=== PATIENT | male | born 1965 | race Caucasian/White ===

== ENCOUNTER 2025-02-11 07:32 | Outpatient (CLI) | payer OTHER | END 2025-02-11 07:33 | disposition home or self-care (01) | LOC: CSHULT 07:32 | PROVIDERS: ATTEND Family Medicine | DX: R09.89 Other specified symptoms and signs involving the circulatory and respiratory systems (principal); I10 Essential (primary) hypertension; R93.429 Abnormal radiologic findings on diagnostic imaging of unspecified kidney; I65.23 Occlusion and stenosis of bilateral carotid arteries | CPT/HCPCS: 76770; 93880 ==